=== PATIENT | female | born 1990 | race Caucasian/White ===

== ENCOUNTER 2024-09-04 01:27 | Emergency (ER) | payer BC ==
[~2024-09-04] VITALS: Ht 165.1 cm; Wt 113.4 kg
[2024-09-04] MEDS ORDERED: methylPREDNISolone SOD SUCC 125 MG/2 ML VIAL ONE (02:10)
[2024-09-04] MEDS ORDERED: ALBUTEROL SULFATE 2.5 MG/3 ML NEBU ONE (02:10)
[2024-09-04] MEDS ORDERED: IPRATROPIUM BROMIDE 0.5 MG/2.5 ML NEBU ONE (02:10)
[2024-09-04] MEDS ORDERED: DOXYCYCLINE HYCLATE 100 MG TABLET ONE (02:10)
[2024-09-04 02:13] LABS: BASOPHILS # (AUTO) 0.1 K/UL (0.0-0.2); BASOPHILS % (AUTO) 0.7 % (0.0-2.0); EOSINOPHILS # (AUTO) 0.8 K/uL (0.0-0.7); EOSINOPHILS % (AUTO) 5.6 % (0.0-7.0); HEMATOCRIT 32.7 % (31.2-41.9); HEMOGLOBIN 9.6 g/dL (10.9-14.3); LYMPHOCYTES # (AUTO) 2.4 K/uL (0.8-4.8); LYMPHOCYTES % (AUTO) 17.3 % (20.5-51.5); MEAN CORPUSCULAR HEMOGLOBIN 18.9 uug (24.7-32.8); MEAN CORPUSCULAR HGB CONC 29 g/dL (32.3-35.6); MEAN CORPUSCULAR VOLUME 64.2 fL (75.5-95.3); MONOCYTES # (AUTO) 1.1 K/uL (0.1-1.30); MONOCYTES % (AUTO) 7.6 % (0.0-11.0); NEUTROPHILS # (AUTO) 9.6 K/uL (1.8-8.9); NEUTROPHILS % (AUTO) 68.8 % (38.5-71.5); PLATELET COUNT (AUTO) 354 K/uL (179-408); RED BLOOD CELL COUNT(AUTO) 5.09 MIL/uL (3.63-4.92); RED CELL DISTRIBUTION WIDTH 20.9 % (12.3-17.7)
[2024-09-04] MEDS: ALBUTEROL SULFATE 2.5 MG/3 ML NEBU NEB ONE (02:14)
[2024-09-04] MEDS: IPRATROPIUM BROMIDE 0.5 MG/2.5 ML NEBU NEB ONE (02:14)
[2024-09-04 02:16] VITALS: O2SAT 95
[2024-09-04] MEDS: DOXYCYCLINE HYCLATE 100 MG TABLET PO ONE (02:18)
[2024-09-04] MEDS: methylPREDNISolone SOD SUCC 40 MG/ML VIAL IM ONE (02:18)
[2024-09-04] MEDS ORDERED: FLUT12AE5 INH (02:19)
[2024-09-04] MEDS ORDERED: ALBU6.7H9 INH (02:19)
[2024-09-04] MEDS ORDERED: DOXY100T2 PO (02:19)
[2024-09-04] MEDS ORDERED: PRED20TA PO (02:19)
[2024-09-04 02:21] LABS: CALCIUM 8.7 mg/dL (8.5-10.1); CREATININE 0.7 mg/dL (0.6-1.3); POTASSIUM 3.8 mmol/L (3.5-5.1)
[2024-09-04 02:26] VITALS: O2SAT 100
[2024-09-04 02:56] VITALS: BP 125/71; TEMP 98.6; O2SAT 100
== END 2024-09-04 02:57 | disposition home or self-care (01) ==
LOC: ER 01:39
DX: J45.901 Unspecified asthma with (acute) exacerbation (principal); Z79.51 Long term (current) use of inhaled steroids; Z79.52 Long term (current) use of systemic steroids
CPT/HCPCS: 36415; 71045; 85025; A4606; A4663; J2919; J3590

== ENCOUNTER 2024-11-21 20:29 | Emergency (ER) | payer BC ==
[~2024-11-21] VITALS: Ht 165.1 cm; Wt 11.3 kg
[~2024-11-21 20:29] MED LIST: ALBU6.7H9 INH; DOXY100T2 PO; FLUT12AE5 INH; PRED20TA PO
[2024-11-22 00:49] LABS: BASOPHILS % (AUTO) 0.3 % (0.0-2.0); EOSINOPHILS # (AUTO) 0.5 K/uL (0.0-0.7); EOSINOPHILS % (AUTO) 4.1 % (0.0-7.0); HEMATOCRIT 37.6 % (31.2-41.9); HEMOGLOBIN 11.8 g/dL (10.9-14.3); LYMPHOCYTES # (AUTO) 2.2 K/uL (0.8-4.8); LYMPHOCYTES % (AUTO) 17.5 % (20.5-51.5); MEAN CORPUSCULAR HEMOGLOBIN 23.9 uug (24.7-32.8); MEAN CORPUSCULAR HGB CONC 31 g/dL (32.3-35.6); MEAN CORPUSCULAR VOLUME 75.9 fL (75.5-95.3); MONOCYTES # (AUTO) 1.6 K/uL (0.1-1.30); MONOCYTES % (AUTO) 12.5 % (0.0-11.0); NEUTROPHILS # (AUTO) 8.2 K/uL (1.8-8.9); NEUTROPHILS % (AUTO) 65.6 % (38.5-71.5); PLATELET COUNT (AUTO) 277 K/uL (179-408); RED BLOOD CELL COUNT(AUTO) 4.95 MIL/uL (3.63-4.92); RED CELL DISTRIBUTION WIDTH 20.7 % (12.3-17.7); WHITE BLOOD COUNT (AUTO) 12.5 K/uL (3.8-11.8)
[2024-11-22 00:51] LABS: DIFFERENTIAL COMMENT 1
[2024-11-22] MEDS: IPRATROPIUM BROMIDE 0.5 MG/2.5 ML NEBU NEB ONE (00:51)
[2024-11-22] MEDS: ALBUTEROL SULFATE 2.5 MG/3 ML NEBU NEB ONE ×2 (00:51→01:24)
[2024-11-22] MEDS ORDERED: ALBUTEROL SULFATE 2.5 MG/3 ML NEBU ONE (00:57)
[2024-11-22] MEDS ORDERED: IPRATROPIUM BROMIDE 0.5 MG/2.5 ML NEBU ONE (00:57)
[2024-11-22] MEDS ORDERED: predniSONE 20 MG TABLET ONE (01:01)
[2024-11-22 01:03] LABS: CALCIUM 8.8 mg/dL (8.5-10.1); CREATININE 0.7 mg/dL (0.6-1.3); POTASSIUM 4.1 mmol/L (3.5-5.1)
[2024-11-22 01:05] VITALS: O2SAT 97
[2024-11-22] MEDS: predniSONE 10 MG TABLET PO ONE (01:18)
[2024-11-22 01:25] VITALS: O2SAT 97
[2024-11-22] MEDS ORDERED: BUDE10.2 INH (01:33)
[2024-11-22] MEDS ORDERED: ALBU8.5H8 INH (01:33)
[2024-11-22 01:40] VITALS: BP 111/62; TEMP 97.9; O2SAT 99
== END 2024-11-22 01:41 | disposition home or self-care (01) ==
LOC: ER 20:29
DX: J45.901 Unspecified asthma with (acute) exacerbation (principal); Z79.51 Long term (current) use of inhaled steroids; Z79.52 Long term (current) use of systemic steroids
CPT/HCPCS: 99284; 71045; 80048; 85025; 36415; 94640; J7512; A4606; A4663; J3590

== ENCOUNTER 2024-12-15 17:13 | Emergency (ER) | payer BC ==
[~2024-12-15] VITALS: Ht 165.1 cm; Wt 113.4 kg
[~2024-12-15 17:13] MED LIST changes: +ALBU8.5H8 INH; +BUDE10.2 INH
[2024-12-15 18:02] VITALS: O2SAT 99
[2024-12-15] MEDS ORDERED: CETI10CA19 PO (18:39)
== END 2024-12-15 18:50 | disposition home or self-care (01) ==
LOC: ER 17:13
DX: Z13.89 Encounter for screening for other disorder (principal); J45.909 Unspecified asthma, uncomplicated; Z79.51 Long term (current) use of inhaled steroids; Z79.52 Long term (current) use of systemic steroids; Z88.0 Allergy status to penicillin
CPT/HCPCS: A4606; A4663

== ENCOUNTER 2024-12-24 20:45 | Emergency (ER) | payer BC ==
[~2024-12-24] VITALS: Ht 165.1 cm; Wt 113.4 kg
[~2024-12-24 20:45] MED LIST changes: +CETI10CA19 PO
[2024-12-24] MEDS: IPRATROPIUM BROMIDE 0.5 MG/2.5 ML NEBU NEB ONE (21:16)
[2024-12-24] MEDS: ALBUTEROL SULFATE 2.5 MG/3 ML NEBU NEB ONE (21:16)
[2024-12-24] MEDS ORDERED: ALBUTEROL SULFATE 2.5 MG/3 ML NEBU ONE (21:19)
[2024-12-24] MEDS ORDERED: IPRATROPIUM BROMIDE 0.5 MG/2.5 ML NEBU ONE (21:19)
[2024-12-24] MEDS ORDERED: predniSONE 10 MG TABLET ONE ×2 (21:28→21:37)
[2024-12-24] MEDS ORDERED: predniSONE 50 MG TABLET ONE (21:28)
[2024-12-24 21:30] VITALS: O2SAT 96
[2024-12-24] MEDS: predniSONE 10 MG TABLET PO ONE (21:33)
[2024-12-24 21:39] LABS: BASOPHILS % (AUTO) 0.4 % (0.0-2.0); EOSINOPHILS # (AUTO) 0.4 K/uL (0.0-0.7); EOSINOPHILS % (AUTO) 4.2 % (0.0-7.0); HEMATOCRIT 37.3 % (31.2-41.9); HEMOGLOBIN 11.7 g/dL (10.9-14.3); LYMPHOCYTES # (AUTO) 1.4 K/uL (0.8-4.8); LYMPHOCYTES % (AUTO) 13.4 % (20.5-51.5); MEAN CORPUSCULAR HEMOGLOBIN 24.1 uug (24.7-32.8); MEAN CORPUSCULAR HGB CONC 31 g/dL (32.3-35.6); MONOCYTES % (AUTO) 9.4 % (0.0-11.0); NEUTROPHILS # (AUTO) 7.6 K/uL (1.8-8.9); NEUTROPHILS % (AUTO) 72.6 % (38.5-71.5); PLATELET COUNT (AUTO) 235 K/uL (179-408); RED BLOOD CELL COUNT(AUTO) 4.85 MIL/uL (3.63-4.92); RED CELL DISTRIBUTION WIDTH 16.5 % (12.3-17.7); WHITE BLOOD COUNT (AUTO) 10.5 K/uL (3.8-11.8)
[2024-12-24 21:40] VITALS: O2SAT 98
[2024-12-24] MEDS: predniSONE 20 MG TABLET PO ONE (21:40)
[2024-12-24] MEDS ORDERED: ALBU0.63 IH (21:50)
[2024-12-24] MEDS ORDERED: PRED20TA PO (21:50)
[2024-12-24] MEDS ORDERED: ALBU8.5H8 IH (21:50)
[2024-12-24 21:59] LABS: DIFFERENTIAL COMMENT 1
[2024-12-24 22:03] LABS: CALCIUM 8.5 mg/dL (8.5-10.1); CREATININE 0.8 mg/dL (0.6-1.3); POTASSIUM 3.9 mmol/L (3.5-5.1)
[2024-12-24 22:16] LABS: ALBUMIN 3.5 g/dL (3.4-5.0); BILIRUBIN,DIRECT 0.1 mg/dL (0.0-0.2); BILIRUBIN,TOTAL 0.2 mg/dL (0.2-1.0); TOTAL PROTEIN, SERUM 7.5 g/dL (6.4-8.2)
[2024-12-24 23:34] VITALS: BP 152/87; TEMP 98.7; O2SAT 98
== END 2024-12-24 23:39 | disposition home or self-care (01) ==
LOC: ER 20:45
DX: J98.01 Acute bronchospasm (principal); E66.9 Obesity, unspecified; Z79.51 Long term (current) use of inhaled steroids; Z79.52 Long term (current) use of systemic steroids; Z68.41 Body mass index [BMI] 40.0-44.9, adult; Z20.822 Contact with and (suspected) exposure to COVID-19; Z88.0 Allergy status to penicillin
CPT/HCPCS: 99285; 71045; 87426; 87804 ×2; 80076; 80048; 83880; 85025; 85379; 36415; 94640; 93005; J7512 ×2; A4606; A4663; J3590

== ENCOUNTER 2025-04-18 20:55 | Emergency (ER) | payer BC, MEDICAID ==
[~2025-04-18] VITALS: Ht 165.1 cm; Wt 113.4 kg
[~2025-04-18 20:55] MED LIST changes: +ALBU0.63 IH; +ALBU8.5H8 IH
[2025-04-18] MEDS ORDERED: ALBUTEROL SULFATE 2.5 MG/3 ML NEBU NEB ONE (22:15)
[2025-04-18] MEDS: methylPREDNISolone SOD SUCC 125 MG/2 ML VIAL IV ONE (22:15)
[2025-04-18 22:19] LABS: BASOPHILS # (AUTO) 0.1 K/UL (0.0-0.2); BASOPHILS % (AUTO) 0.7 % (0.0-2.0); EOSINOPHILS # (AUTO) 0.6 K/uL (0.0-0.7); EOSINOPHILS % (AUTO) 7.2 % (0.0-7.0); HEMATOCRIT 35.2 % (31.2-41.9); HEMOGLOBIN 10.9 g/dL (10.9-14.3); LYMPHOCYTES # (AUTO) 2.2 K/uL (0.8-4.8); MEAN CORPUSCULAR HEMOGLOBIN 22.5 uug (24.7-32.8); MEAN CORPUSCULAR HGB CONC 31 g/dL (32.3-35.6); MEAN CORPUSCULAR VOLUME 73.1 fL (75.5-95.3); MONOCYTES # (AUTO) 0.9 K/uL (0.1-1.30); MONOCYTES % (AUTO) 10.6 % (0.0-11.0); NEUTROPHILS # (AUTO) 5.1 K/uL (1.8-8.9); NEUTROPHILS % (AUTO) 56.5 % (38.5-71.5); PLATELET COUNT (AUTO) 296 K/uL (179-408); RED BLOOD CELL COUNT(AUTO) 4.81 MIL/uL (3.63-4.92); RED CELL DISTRIBUTION WIDTH 16.2 % (12.3-17.7)
[2025-04-18 22:20] LABS: DIFFERENTIAL COMMENT 1
[2025-04-18 22:25] LABS: CREATININE 0.7 mg/dL (0.6-1.3); POTASSIUM 3.7 mmol/L (3.5-5.1)
[2025-04-18 22:41] LABS: ALBUMIN 3.4 g/dL (3.4-5.0); BILIRUBIN,TOTAL 0.2 mg/dL (0.2-1.0); TOTAL PROTEIN, SERUM 7.3 g/dL (6.4-8.2)
[2025-04-18 23:26] LABS: *BILIRUBIN,URIN NEGATIVE (NEGATIVE); *BLOOD, URINE NEGATIVE (NEGATIVE); *CLARITY,URINE CLEAR (CLEAR); *COLOR,URINE YELLOW (YELLOW); *KETONES,URINE NEGATIVE (NEGATIVE); *PROTEIN,URINE NEGATIVE (NEGATIVE); *UROBILINOGEN,URINE 0.2 E.U./dl (NORMAL); LEUKOCYTE ESTERASE ,URINE NEGATIVE (NEGATIVE); NITRITE, URINE NEGATIVE (NEGATIVE); UGLUCOSE NEGATIVE (NEGATIVE)
[2025-04-18 23:27] LABS: *URINE HCG, QUAL NEGATIVE (NEGATIVE)
[2025-04-18 23:30] VITALS: O2SAT 96
[2025-04-18 23:34] LABS: *AMPHETAMINE, URINE NEGATIVE (NEGATIVE); *BARBITURATE, URINE NEGATIVE (NEGATIVE); *BENZODIAZEPINE, URINE NEGATIVE (NEGATIVE); *CANNABINOID, URINE NEGATIVE (NEGATIVE); *COCCAINE, URINE NEGATIVE (NEGATIVE); *OPIATE, URINE NEGATIVE (NEGATIVE); *PHENCYCLIDINE SCREEN,URINE NEGATIVE (NEGATIVE); FENTANYL, URINE NEGATIVE (NEGATIVE)
[2025-04-18] MEDS ORDERED: ALBUTEROL SULFATE 2.5 MG/3 ML NEBU ONE (23:34)
[2025-04-19] MEDS: ALBUTEROL SULFATE 2.5 MG/3 ML NEBU NEB STA (00:03)
[2025-04-19] MEDS ORDERED: methylPREDNISolone SOD SUCC 125 MG/2 ML VIAL ONE (00:05)
[2025-04-19 00:47] VITALS: O2SAT 98
[2025-04-19] MEDS ORDERED: AZIT250T PO (01:48)
[2025-04-19] MEDS ORDERED: PRED50TA PO (01:48)
[2025-04-19] MEDS ORDERED: ALBU18HF2 INH (01:48)
[2025-04-19] MEDS ORDERED: ALBU2.5V38 NEB (01:48)
[2025-04-19] MEDS ORDERED: predniSONE 20 MG TABLET ONE (01:49)
[2025-04-19] MEDS: predniSONE 20 MG TABLET PO ONE (02:05)
[2025-04-19 02:10] VITALS: BP 139/86; O2SAT 99
== END 2025-04-19 01:56 | disposition home or self-care (01) ==
LOC: ER 20:55
DX: J45.901 Unspecified asthma with (acute) exacerbation (principal); E66.9 Obesity, unspecified; Z98.890 Other specified postprocedural states; Z79.51 Long term (current) use of inhaled steroids; Z79.52 Long term (current) use of systemic steroids; Z68.41 Body mass index [BMI] 40.0-44.9, adult; Z88.0 Allergy status to penicillin
CPT/HCPCS: 99285; 71045; 80053; 84703; 83880; 85025; 84484; 36415; 94644; 93005; 80307; 81003; J7512; A4606; A4663; J2919